=== PATIENT | female | born 1995 | race Asian ===

== ENCOUNTER 2019-10-03 05:11 | Emergency (ER) | payer OTHER ==
[~2019-10-03] VITALS: Ht 154.9 cm; Wt 55.3 kg
[2019-10-03 05:22] VITALS: BP 102/55
[2019-10-03] MEDS ORDERED: ACETAMINOPHEN 500 MG TABLET PO ONE (05:45)
[2019-10-03 06:21] LABS: INFLUENZA A PATIENT POSITIVE (NEGATIVE); INFLUENZA B PATIENT NEGATIVE (NEGATIVE)
[2019-10-03] MEDS ORDERED: OSELTAMIVIR 75 MG CAPSULE PO ONE (06:30)
[2019-10-03] MEDS ORDERED: HYDR-3164 PO (06:38)
[2019-10-03] MEDS ORDERED: OSEL75CA PO (06:38)
--- NOTE | 2019-10-03 06:38 | PHYS DOC ---
Past Medical History Past Medical History: No Pertinent History Past Surgical History: No Surgical History Alcohol Use: None Drug Use: None Adult General Chief Complaint Chief Complaint: FLU SYMPTOM HPI HPI Patient is a 24 year old female patient without history of medical problem at 23 weeks of gestation who presents with complaint of cough and fever. Patient complaining of nonproductive cough, fever, chills, nausea, nasal congestion, sore throat and earache and myalgia since yesterday after she had sick contacts at home. Patient denies abdominal pain, vaginal bleeding or discharge, diarrhea and vomiting. Review of Systems Review of Systems Constitutional: Reports fever and chills Eyes: Denies change in visual acuity, redness, or eye pain [] HENT: Reports nasal congestion and sore throat Respiratory: Reports cough Cardiovascular: No additional information not addressed in HPI [] GI: Denies abdominal pain, vomiting, bloody stools or diarrhea [] : Denies dysuria or hematuria [] Musculoskeletal: Denies back pain or joint pain [] Integument: Denies rash or skin lesions [] Neurologic: Denies headache, focal weakness or sensory changes [] Endocrine: Denies polyuria or polydipsia [] All other systems were reviewed and found to be within normal limits, except as documented in this note. Current Medications Current Medications Current Medications Medications (Trade) Dose Ordered Sig/Malik Start Time Stop Time Status Last Admin Dose Admin Acetaminophen (Tylenol) 1,000 mg 1X ONCE 10/03/19 05:45 10/03/19 05:47 DC 10/03/19 06:01 1,000 MG Oseltamivir Phosphate (Tamiflu) 75 mg 1X 10/03/19 06:30 10/08/19 06:29 UNV Allergies Allergies Allergies Coded Allergies Type Severity Reaction Last Updated Verified No Known Drug Allergies 10/03/19 No Physical Exam Physical Exam Constitutional: Well developed, well nourished, mild distress, non-toxic appearance, febrile. [] HENT: Normocephalic, atraumatic, bilateral external ears normal, oropharynx moist, pharyngeal erythema no oral exudates, nose normal. [] Eyes: PERRLA, EOMI, conjunctiva normal, no discharge. [] Neck: Normal range of motion, no tenderness, supple, no stridor. [] Cardiovascular: Tachycardia, no murmur [] Lungs & Thorax: Bilateral breath sounds clear to auscultation [] Abdomen: Bowel sounds normal, soft, no tenderness, no masses, no pulsatile masses. [] Skin: Warm, dry, no erythema, no rash. [] Back: No tenderness, no CVA tenderness. [] Extremities: No tenderness, no cyanosis, no clubbing, ROM intact, no edema. [] Neurologic: Alert and oriented X 3, normal motor function, normal sensory func tion, no focal deficits noted. [] Psychologic: Affect normal, judgement normal, mood normal. [] Current Patient Data Vital Signs Vital Signs Date Time Temp Pulse Resp B/P (MAP) Pulse Ox O2 Delivery O2 Flow Rate FiO2 10/03/19 05:22 100.1 105 17 102/55 (71) 97 Room Air 100.1 Lab Values Laboratory Tests Test 10/03/19 05:45 Influenza Type A Antigen Positive (NEGATIVE) Influenza Type B Antigen Negative (NEGATIVE) EKG EKG [] Radiology/Procedures Radiology/Procedures [] Course & Med Decision Making Course & Med Decision Making Pertinent Labs reviewed. (See chart for details) Evaluation of patient in ER showed 24 year old female patient at 23 weeks of gestation complaining of like symptoms for 24 hours. Positive flu a and first dose of Tamiflu was ordered in ER. Plan to discharge patient with prescription of Tamiflu and [place] and instruction to increase fluid and follow up with her [employer]. Dragon Disclaimer Dragon Disclaimer This electronic medical record was generated, in whole or in part, using a voice recognition dictation system. Departure Departure Impression: Primary Impression: Influenza A Additional Impressions: Currently Fever Disposition: 01 HOME, SELF-CARE (at 0 [phone]) Condition: IMPROVED Referrals: NO PCP (PCP) Patient Instructions: Influenza A (H1N1) Additional Instructions: Drink plenty of liquids Follow-up with your primary care physician in 3-5 days Return to ER if not getting better May take Tylenol every 6 hours for fever and pain May take [id number] Benadryl as needed for cough Follow-up with your [employer] as needed Thank you for visiting [facility]. We appreciate you trusting us with your care. If any additional problems come up don't hesitate to return to visit us. Please follow up with your primary care provider so they can plan additional care if needed and know about the problem that you had. If symptoms worsen come back to the Emergency Department. Any concerning symptoms that start such as chest pain, shortness of air, weakness or numbness on one side of the body, running high fevers or any other concerning symptoms return to the ER. Scripts Oseltamivir Phosphate (TAMIFLU) 75 Mg Capsule 1 CAP PO BID, #10 CAP Prov: LITA CHONG MD 10/03/19 Hydrocodone/Apap 5-325 (NORCO 5-325 TABLET) 1 Each Tablet 1 TAB PO PRN Q6HRS PRN for PAIN, #10 TAB 0 Refills Prov: LITA CHONG MD 10/03/19 Problem Qualifiers Additional Impressions: Currently Weeks of gestation: 23 weeks Qualified Codes: Z3A.23 - 23 weeks gestation of Fever Fever type: unspecified Qualified Codes: R50.9 - Fever, unspecified LITA CHONG MD Oct 03, 2019 06:38
== END 2019-10-03 06:55 | disposition home or self-care (01) ==
LOC: ER 05:11
DX: O26.892 Other specified pregnancy related conditions, second trimester (principal); J10.1 Influenza due to other identified influenza virus with other respiratory manifestations; Z3A.23 23 weeks gestation of pregnancy
CPT/HCPCS: 87804; 99284